=== PATIENT | female | born 1950 | race Caucasian/White ===

== ENCOUNTER 2021-07-26 15:15 | Inpatient (IN) | payer MEDICARE, SELFPAY ==
[2021-07-26 16:11] VITALS: BP 168/89; PULSE 81; RESP 16; TEMP 36.6; O2SAT 97
[2021-07-26 17:13] VITALS: BMI 28.0
--- NOTE | 2021-07-26 19:17 | PC.ADMIT ---
Arrived on unit via stretcher/ambulance from [facility] ED at 1530. Signed CV and accepted by Dr Lacey. Five minute safety checks started upon admission to unit. Precipitating factors to admission: Pt expressing SI to friends and called [place] [employer] per pt to express SI. Stressors: pending long-term and daughter and son-in-law moving to [place] in November. Tox screen negative, etoh<10, Acetaminophen <15. Initially stated only medical issue as high cholesterol and only med as Simvastatin. Meds verified with MARTINA Richards. Meds verified Simvastatin 10 mg po bedtime and Lasix 20 mg every other day. Pt acknowledges use of Lasix also. Prescribed meds last taken 2 days ago. Admission orders received from Dr Lacey. Dr Tirado informed of meds verified and will be placing order. Alert and oriented x4. Clinical impression from [facility]: Anxiety, Depressed Mood, Suicidal Ideation. Medical issues: High cholesterol. Cooperative with admission process. Presents with depressed/anxious mood, blunted affect. Anxious re: insurance coverage for this admission at present time. Fifteen min safety checks ordered when admission orders received. Denies current SI/HI. Denies AH/VH ever. Reports disturbed sleep. Hospitalist consult in, Dr Santana notified.
[2021-07-26 19:46] VITALS: BP 149/81; PULSE 72; RESP 16; TEMP 36.1; O2SAT 97
[2021-07-26] MEDS: Mirtazapine 7.5 MG TABLET PO (20:57)
[2021-07-26] MEDS: traZODone HCL 50 MG TABLET PO ×2 (20:57→23:32)
[2021-07-26] MEDS: Atorvastatin Calcium 10 MG TABLET PO (20:57)
[2021-07-27 06:00] VITALS: BP 144/94; PULSE 99; RESP 17; TEMP 36.2; O2SAT 99
[2021-07-27 07:00] VITALS: BMI 28.1
[2021-07-27 08:17] LABS: Alanine Aminotransferase 16 U/L (0-31); Albumin Level 4.3 g/dL (3.5-5.0); Alkaline Phosphatase 80 U/L (39-117); Anion Gap 13 (12-20); Aspartate Amino Transferase 13 U/L (5-31); Bilirubin Total 0.5 mg/dL (0.0-1.0); Blood Urea Nitrogen 16 mg/dL (9-16); Calcium 9.7 mg/dL (8.4-10.2); Carbon Dioxide 28 mmol/L (22-29); Chloride 103 mmol/L (96-108); Cholesterol 160 mg/dL; Creatinine Clr Calc Pharmacy 70.3; Estimated Glomerular Filt Rate > 60; Glucose Fasting 102 mg/dL (60-99); HDL Cholesterol 43 mg/dL; LDL Cholesterol Calculated 97 mg/dl; Potassium 3.6 mmol/L (3.3-5.1); Sodium 140 mmol/L (135-145); Total Protein 7.2 g/dL (6.5-8.0); Triglycerides 101 mg/dL
--- NOTE | 2021-07-27 08:58 | HO.PM.IMCN ---
History of Present Illness Data of Consult Service Date: 07/27/21 Primary Care Provider: Unknown Physician HPI Reason for consult: Routine Medical Exam This is a relatively health 71 yo F admitted to the inpatient [facility] unit. Medical consult requested for routine medical H&P per protocol. Patient is seen and examined on the unit. Her daughter is bedside. She denies any active medical complaints. PMH HLD PSH Mole removal as a child FH non-contributory SH No tobacco, social EtOH, denies drugs Review of Systems Review of Systems: negative except hpi PMFSH Social History Household Members: None Household Members Other:: 0 Housing: House Do you presently have visiting nurse or other home services: No Patient Tobacco Use Status: Never used Tobacco Smoked in Last 30 Days: No e-Cigarette/Vaping Use: Never Used Use of substances other than those prescribed or required for medical reasons: No Currently Displaying Signs/Symptoms of Drug Intoxication Withdrawal: No Any prior treatment program specific to substance use: No Have you been hit, kicked, punched, or otherwise hurt by someone within the past year? If so, by whom?: No Do you feel safe in your current relationship?: No Current Relationship Are you made to feel afraid or neglected: No Advance Directives: No Advance Directives Information Provided: No Advance Directives on File: No Do you have thoughts of harming others: None Do you have a plan to hurt others: No Plan Recently lost weight without trying: No Eating poorly because of decreased appetite: No Nutrition Risks: No Nutritional Risk Patient : No : No Poor oral hygiene: No Meds Allergies Allergy/AdvReac Type Severity Reaction Status Date / Time No Known Allergies Allergy Verified 07/26/21 16:03 Active Medications: Current Medications Acetaminophen (Acetaminophen 325 Mg Tablet) 650 mg PO Q6H PRN PRN Reason: Headache/Pain Mild Scale (1-3) Al Hydroxide/Mg Hydroxide (Magnesium Hydrox/Alum Hydrox 30 Ml Oral.Susp) 30 ml PO Q6H PRN PRN Reason: Heartburn/Nausea Atorvastatin Calcium (Atorvastatin Calcium 10 Mg Tablet) 10 mg PO BEDTIME RODDY Last Admin: 07/26/21 20:57 Dose: 10 mg Documented by: Furosemide (Furosemide 20 Mg Tablet) 20 mg PO DAILY RODDY; Protocol Hydroxyzine HCl (Hydroxyzine Hcl 25 Mg Tablet) 25 mg PO BEDTIME PRN PRN Reason: Anxiety Magnesium Hydroxide (Milk Of Magnesia 30 Ml Oral.Susp) 30 ml PO DAILY PRN PRN Reason: Constipation Mirtazapine (Mirtazapine 7.5 Mg Tablet) 7.5 mg PO BEDTIME R[facility] Last Admin: 07/26/21 20:57 Dose: 7.5 mg Documented by: Trazodone HCl (Trazodone Hcl 50 Mg Tablet) 50 mg PO BEDTIME PRN PRN Reason: Insomnia Last Admin: 07/26/21 23:32 Dose: 50 mg Documented by: Home Medications Medication Instructions Recorded Confirmed Last Taken Type furosemide 20 mg PO Q OTHER DAY 07/26/21 07/26/21 2 Days Ago History ~07/24/21 20 mg simvastatin 10 mg PO BEDTIME 07/26/21 07/26/21 2 Days Ago History ~07/24/21 10 mg Physical Exam Vital Signs and Narrative: Vital Signs: Last Vital Signs Temp 97.0 F 07/26/21 19:46 Pulse 72 07/26/21 19:46 Resp 16 07/26/21 19:46 BP 149/81 H 07/26/21 19:46 Pulse Ox 97 07/26/21 19:46 BMI result Body Mass Index 28.0 Const: Other: General - no acute distress, appears comfortable Cardiovascular - regular rate and rhythm, S1-S2 Lungs - normal respiratory effort, clear to auscultation bilaterally, no wheezing Abdomen - soft, nontender, no rebound or guarding Extremities - no edema bilaterally Neuro - awake and alert, no focal deficits; cn 2-12 intact b/l Results Labs CBC and Chem 7: 07/27/21 07:54 Labs: Laboratory Results - last 24 hr 07/27/21 07:54 Anion Gap 13 Estim Creat Clear Calc 70.3 Estimated GFR > 60 Fasting Glucose 102 H Calcium 9.7 Total Bilirubin 0.5 AST 13 ALT 16 Alkaline Phosphatase 80 Total Protein 7.2 Albumin 4.3 Triglycerides 101 Cholesterol 160 LDL Cholesterol, Calc 97 HDL Cholesterol 43 Assessment and Plan (1) Routine medical exam: Status: Acute Plan 71 [facility] F [facility] Medical consultation sought for routine medical H&P. Patient has no active medical issues. Patient has been counseled on age appropriate health maintenance as an outpatient. Continue care per primary team. Will sign off. Please re-consult if any issues arise.
[2021-07-27] MEDS: Furosemide 20 MG TABLET PO (09:21)
--- NOTE | 2021-07-27 15:57 | P.HPPS_ITS ---
HPI Date of Service: 07/27/21 Chief Complaint: Suicidal ideation Sources of Information: patient interviewed, chart reviewed and crisis/core team assessment reviewed HPI Subjective Notes: Conditional Voluntary Narrative: The patient is a 71-year-old female, single, mother of an adopted adult daughter, living alone, employed at the [employer] in [place] with good social support. The patient called 911 since she had suicidal thoughts. She was rushed to the emergency room, says by crisis and transferring to this facility for psychiatric stabilization. The patient acknowledged a history of depressed mood, anhedonia, lack of energy, poor sleep and disturbing suicidal thoughts. 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 On interview, the patient denies having prior psychiatric contacts, she adamantly denies hallucinations or delusions or any other safety concerns. The patient is highly educated pleasant and cooperative. She is able to contract for safety in the facility, Past Psychiatric History: denies Medical Evaluation Reviewed: Hospitalist P[facility]ual Pending [facility] Family History: denies Social History: the patient is the 2nd of 4 children, her milestones were achieved at expected age she was raised by her parents. She denied regular school and later she went to college and she has a master's degree in teaching. She has never been and she adopted her daughter in [place] 20 years ago. She works currently in [employer] at [employer] in [place]. She has good social support by friends and family. Substance History: Denies Trauma History: denies Diagnostics Vital Signs (24Hr): Vital Signs - 24 hr 07/26/21 16:11 07/26/21 19:46 07/27/21 06:00 Temperature 97.9 F 97.0 F 97.2 F Pulse Rate 81 72 99 Respiratory Rate 16 16 17 Blood Pressure 168/89 H 149/81 H 144/94 H Pulse Oximetry 97 97 99 BMI result Body Mass Index 28.1 Labs Results: 07/27/21 07:54 Labs: Laboratory Results - last 48 hr 07/27/21 07:54 Sodium 140 Potassium 3.6 Chloride 103 Carbon Dioxide 28 Anion Gap 13 BUN 16 Creatinine 0.76 Estim Creat Clear Calc 70.3 Estimated GFR > 60 Fasting Glucose 102 H Calcium 9.7 Total Bilirubin 0.5 AST 13 ALT 16 Alkaline Phosphatase 80 Total Protein 7.2 Albumin 4.3 Triglycerides 101 Cholesterol 160 LDL Cholesterol, Calc 97 HDL Cholesterol 43 Meds/Allergies Meds Home Medications Medication Instructions Recorded Confirmed Type furosemide 20 mg PO Q OTHER DAY 07/26/21 07/26/21 History simvastatin 10 mg PO BEDTIME 07/26/21 07/26/21 History Allergies Allergies Allergy/AdvReac Type Severity Reaction Status Date / Time No Known Allergies Allergy Verified 07/26/21 16:03 Mental Status Exam Mental Status Exam Patient Appearance: Well Grooomed Patient Orientation: Person and Situation Level of Consciousness: Awake Patient Behavior: Cooperative Mood Description: Withdrawn Affect Description: Constricted Patient Cognition Impaired: No Ability to Follow Directions: Good Speech Pattern: Clear Hallucinations: None Delusions: Not Present Thought Process: Intact, Goal Oriented and Linear Thought Content: positive for Circumstantial Judgement: Fair Assessment & Plan Assessment & Plan (1) Major depressive disorder: Status: Acute Code(s): F32.9 - Major depressive disorder, single episode, unspecified Plan the patient is an elderly female with no prior psychiatric history admitted for suicidal ideation in the context of several psychosocial stressors. The patient is highly located in [facility] and she called by herself 911 asking for help. Plan 1. . Gather collateral information. 2. Increase Remeron up to 15 mg p.o. q.h.s. to target insomnia and dysphoria. Patient educated on: diagnosis, medication risk/benefits and therapeutic strategies Informed Consent: understands Reason for continued inpatient stay Substantial Risk for: harm to self, inability to function, rapid decompensation and med/psych decompensation
[2021-07-27 19:57] VITALS: BP 109/91; PULSE 86; RESP 16; TEMP 36.3; O2SAT 97
[2021-07-27] MEDS: Mirtazapine 15 MG TABLET PO (21:16)
[2021-07-27] MEDS: Atorvastatin Calcium 10 MG TABLET PO (21:17)
[2021-07-28 07:45] VITALS: BP 131/78; PULSE 81; RESP 17; TEMP 36.4; O2SAT 98
--- NOTE | 2021-07-28 16:13 | P.PNPSI_ITS ---
Subjective Subjective Date of Service: 07/28/21 Reason For Visit: Suicidal ideation Subjective Notes: Conditional Voluntary Interim History: the nursing staff reported the patient slept well, she has been fully compliant with treatment. On interview the patient denies new symptoms she feels much better after she slept well last night. She still slightly dysphoric but able to contract for safety in the facility. Mental Status Exam Mental Status Exam Patient Appearance: Well Grooomed Patient Orientation: Person, Place, Time and Situation Level of Consciousness: Awake and Appropriate Patient Behavior: Cooperative Mood Description: Withdrawn Affect Description: Constricted Patient Cognition Impaired: No Ability to Follow Directions: Excellent Speech Pattern: Clear Hallucinations: None Delusions: Not Present Thought Process: Intact Thought Content: positive for Circumstantial Judgement: Fair Diagnostics Vital Signs (24Hr): Vital Signs - 24 hr 07/27/21 19:57 07/28/21 07:45 Temperature 97.4 F 97.6 F Pulse Rate 86 81 Respiratory Rate 16 17 Blood Pressure 109/91 H 131/78 Pulse Oximetry 97 98 BMI result Body Mass Index 28.1 Labs Results: 07/27/21 07:54 Labs: Laboratory Results - last 48 hr 07/27/21 07:54 Sodium 140 Potassium 3.6 Chloride 103 Carbon Dioxide 28 Anion Gap 13 BUN 16 Creatinine 0.76 Estim Creat Clear Calc 70.3 Estimated GFR > 60 Fasting Glucose 102 H Calcium 9.7 Total Bilirubin 0.5 AST 13 ALT 16 Alkaline Phosphatase 80 Total Protein 7.2 Albumin 4.3 Triglycerides 101 Cholesterol 160 LDL Cholesterol, Calc 97 HDL Cholesterol 43 Medications Medications Current Medications Acetaminophen (Acetaminophen 325 Mg Tablet) 650 mg PO Q6H PRN PRN Reason: Headache/Pain Mild Scale (1-3) Al Hydroxide/Mg Hydroxide (Magnesium Hydrox/Alum Hydrox 30 Ml Oral.Susp) 30 ml PO Q6H PRN PRN Reason: Heartburn/Nausea Atorvastatin Calcium (Atorvastatin Calcium 10 Mg Tablet) 10 mg PO BEDTIME RODDY Last Admin: 07/27/21 21:17 Dose: 10 mg Documented by: Furosemide (Furosemide 20 Mg Tablet) 20 mg PO Q2D@0900 [facility] Hydroxyzine HCl (Hydroxyzine Hcl 25 Mg Tablet) 25 mg PO BEDTIME PRN PRN Reason: Anxiety Magnesium Hydroxide (Milk Of Magnesia 30 Ml Oral.Susp) 30 ml PO DAILY PRN PRN Reason: Constipation Mirtazapine (Mirtazapine 15 Mg Tablet) 15 mg PO BEDTIME RODDY Last Admin: 07/27/21 21:16 Dose: 15 mg Documented by: Trazodone HCl (Trazodone Hcl 50 Mg Tablet) 50 mg PO BEDTIME PRN PRN Reason: Insomnia Last Admin: 07/26/21 23:32 Dose: 50 mg Documented by: Allergies Allergies Allergy/AdvReac Type Severity Reaction Status Date / Time No Known Allergies Allergy Verified 07/26/21 16:03 Assessment & Plan Assessment & Plan (1) Major depressive disorder: Status: Acute Code(s): F32.9 - Major depressive disorder, single episode, unspecified Plan the patient is an elderly female with no prior psychiatric history admitted for suicidal ideation in the context of several psychosocial stressors. The patient is highly located in [facility] and she called by herself 911 asking for help. Plan 1. Gather collateral information. 2. Keep Remeron 15 mg p.o. q.h.s. to target insomnia and dysphoria. I spent __20____ minutes with the patient and/or on the patient floor today, greater than?50% of which was spent counseling/coordinating care. Reason for contiued inpatient stay Substantial Risk for: inability to function, rapid decompensation and med/psych decompensation
[2021-07-28 18:00] VITALS: BP 135/77; PULSE 84; RESP 18; TEMP 36.8; O2SAT 98
[2021-07-28] MEDS: Mirtazapine 15 MG TABLET PO (20:47)
[2021-07-28] MEDS: Atorvastatin Calcium 10 MG TABLET PO (20:47)
[2021-07-28] MEDS: traZODone HCL 50 MG TABLET PO (20:47)
[2021-07-29 09:20] VITALS: BP 141/79; PULSE 101; RESP 16; TEMP 36.3; O2SAT 98
[2021-07-29] MEDS: Furosemide 20 MG TABLET PO (09:24)
--- NOTE | 2021-07-29 14:09 | P.PNPSI_ITS ---
Subjective Subjective Date of Service: 07/29/21 Reason For Visit: depression and suicidal ideation Subjective Notes: Conditional Voluntary Interim History: overall patient describes anxiety and depression is gradually improving. Sleep was difficult last night which was primarily environmental in nature as there are a number of patients on the unit that are loud. No suicidal thoughts. Feeling very supported by treatment team. Discussed strategies to help with sleep such as medication options along with ear plugs. She did discuss some of the stressors that have contributed to increased anxiety and depression before admission such as her daughter relocating to [place], upcoming assisted from her job. Looking forward to a family meeting after the weekend and disposition planning. Medication Compliance: Yes Side effects from medications: No Attending Groups: Yes Review of Systems Acute medical concerns: No Review of Systems Review of Systems Unremarkable Mental Status Exam Mental Status Exam Narrative: pleasant and engaged. Appropriately dressed. Organized and articulate. Less anxious and depressed. No SI. No HI. No agitation. No psychosis. Insight judgment good Diagnostics Vital Signs (24Hr): Vital Signs - 24 hr 07/28/21 18:00 07/29/21 09:20 Temperature 98.3 F 97.4 F Pulse Rate 84 101 H Respiratory Rate 18 16 Blood Pressure 135/77 141/79 H Pulse Oximetry 98 98 BMI result Body Mass Index 28.1 Labs Results: 07/27/21 07:54 Medications Medications Current Medications Acetaminophen (Acetaminophen 325 Mg Tablet) 650 mg PO Q6H PRN PRN Reason: Headache/Pain Mild Scale (1-3) Al Hydroxide/Mg Hydroxide (Magnesium Hydrox/Alum Hydrox 30 Ml Oral.Susp) 30 ml PO Q6H PRN PRN Reason: Heartburn/Nausea Atorvastatin Calcium (Atorvastatin Calcium 10 Mg Tablet) 10 mg PO BEDTIME [facility] Last Admin: 07/28/21 20:47 Dose: 10 mg Documented by: Furosemide (Furosemide 20 Mg Tablet) 20 mg PO Q2D@0900 [facility] Last Admin: 07/29/21 09:24 Dose: 20 mg Documented by: Hydroxyzine HCl (Hydroxyzine Hcl 25 Mg Tablet) 25 mg PO BEDTIME PRN PRN Reason: Anxiety Magnesium Hydroxide (Milk Of Magnesia 30 Ml Oral.Susp) 30 ml PO DAILY PRN PRN Reason: Constipation Mirtazapine (Mirtazapine 15 Mg Tablet) 15 mg PO BEDTIME [facility] Last Admin: 07/28/21 20:47 Dose: 15 mg Documented by: Trazodone HCl (Trazodone Hcl 50 Mg Tablet) 50 mg PO BEDTIME PRN PRN Reason: Insomnia Last Admin: 07/28/21 20:47 Dose: 50 mg Documented by: Allergies Allergies Allergy/AdvReac Type Severity Reaction Status Date / Time No Known Allergies Allergy Verified 07/26/21 16:03 Assessment & Plan Assessment & Plan (1) Major depressive disorder: Status: Acute Code(s): F32.9 - Major depressive disorder, single episode, unspecified Plan the patient is an elderly female with no prior psychiatric history ad mitted for suicidal ideation in the context of several psychosocial stressors. The patient is highly located in [facility] and she called by herself 911 asking for help. Plan 1. Gather collateral information. 2. Keep Remeron 15 mg p.o. q.h.s. to target insomnia and dysphoria. 07/29/2021: No changes to primary team treatment plan I spent minutes with the patient and/or on the patient floor today, greater than?50% of which was spent counseling/coordinating care. Patient educated on: therapeutic strategies Informed Consent: understands Reason for contiued inpatient stay Substantial Risk for: rapid decompensation
[2021-07-29] MEDS: Mirtazapine 15 MG TABLET PO (20:48)
[2021-07-29] MEDS: traZODone HCL 50 MG TABLET PO (20:48)
[2021-07-29] MEDS: Atorvastatin Calcium 10 MG TABLET PO (20:48)
[2021-07-29 22:13] VITALS: RESP 19
[2021-07-30 08:42] VITALS: BP 109/75; PULSE 93; RESP 16; TEMP 36.6; O2SAT 96
--- NOTE | 2021-07-30 14:34 | HO.PSYCHPN ---
Subjective Subjective Date of Service: 07/30/21 Reason For Visit: depression and suicidal ideation Interim History: overall reports of mood is in a better space. Is frustrated regarding milieu of unit in context of another patient being very loud and disruptive. Is hopeful for discharge as soon as possible. Discussed family support and also liaising with treatment team regarding same. Did sleep better last night and feels that medications and use of earplugs was helpful. Hopefully she can spend some time in her room today and read. No suicidal thoughts. Feeling very supported by treatment team. . Medication Compliance: Yes Side effects from medications: No Attending Groups: Yes Review of Systems Acute medical concerns: No Review of Systems Review of Systems Unremarkable Mental Status Exam Mental Status Exam Narrative: pleasant and engaged. Appropriately dressed. Organized and articulate. Less anxious and depressed. No SI. No HI. No agitation. No psychosis. Insight judgment good Diagnostics Vital Signs (24Hr): Vital Signs - 24 hr 07/29/21 22:13 07/30/21 08:42 Temperature 97.8 F Pulse Rate 93 Respiratory Rate 19 16 Blood Pressure 109/75 Pulse Oximetry 96 BMI result Body Mass Index 28.1 Labs Results: 07/27/21 07:54 Medications Medications Current Medications Acetaminophen (Acetaminophen 325 Mg Tablet) 650 mg PO Q6H PRN PRN Reason: Headache/Pain Mild Scale (1-3) Al Hydroxide/Mg Hydroxide (Magnesium Hydrox/Alum Hydrox 30 Ml Oral.Susp) 30 ml PO Q6H PRN PRN Reason: Heartburn/Nausea Atorvastatin Calcium (Atorvastatin Calcium 10 Mg Tablet) 10 mg PO BEDTIME [facility] Last Admin: 07/29/21 20:48 Dose: 10 mg Documented by: Furosemide (Furosemide 20 Mg Tablet) 20 mg PO Q2D@0900 [facility] Last Admin: 07/29/21 09:24 Dose: 20 mg Documented by: Hydroxyzine HCl (Hydroxyzine Hcl 25 Mg Tablet) 25 mg PO BEDTIME PRN PRN Reason: Anxiety Magnesium Hydroxide (Milk Of Magnesia 30 Ml Oral.Susp) 30 ml PO DAILY PRN PRN Reason: Constipation Mirtazapine (Mirtazapine 15 Mg Tablet) 15 mg PO BEDTIME [facility] Last Admin: 07/29/21 20:48 Dose: 15 mg Documented by: Trazodone HCl (Trazodone Hcl 50 Mg Tablet) 50 mg PO BEDTIME PRN PRN Reason: Insomnia Last Admin: 07/29/21 20:48 Dose: 50 mg Documented by: Allergies Allergies Allergy/AdvReac Type Severity Reaction Status Date / Time No Known Allergies Allergy Verified 07/26/21 16:03 Assessment & Plan Assessment & Plan (1) Major depressive disorder: Status: Acute Code(s): F32.9 - Major depressive disorder, single episode, unspecified Plan the patient is an elderly female with no prior psychiatric history admitted for suicidal ideation in the context of several psychosocial stressors. The patient is highly located in [facility] and she called by herself 911 asking for help. Plan 1. Gather collateral information. 2. Keep Remeron 15 mg p.o. q.h.s. to target insomnia and dysphoria. 07/30/2021: No changes to primary team treatment plan I spent minutes with the patient and/or on the patient floor today, greater than?50% of which was spent counseling/coordinating care. Reason for contiued inpatient stay Substantial Risk for: rapid decompensation
[2021-07-30 18:00] VITALS: BP 124/70; PULSE 82; RESP 16; TEMP 36.9; O2SAT 96
[2021-07-30] MEDS: Atorvastatin Calcium 10 MG TABLET PO (21:00)
[2021-07-30] MEDS: traZODone HCL 50 MG TABLET PO ×2 (21:00→22:09)
[2021-07-30] MEDS: Mirtazapine 15 MG TABLET PO (21:00)
[2021-07-31] MEDS: hydrOXYzine HCL 25 MG TABLET PO (02:47)
[2021-07-31 06:00] VITALS: BP 135/78; PULSE 107; RESP 18; TEMP 36.3; O2SAT 93
[2021-07-31] MEDS: Furosemide 20 MG TABLET PO (08:20)
--- NOTE | 2021-07-31 08:54 | P.PNPSI_ITS ---
Subjective Subjective Date of Service: 07/31/21 Reason For Visit: depression and suicidal ideation Subjective Notes: Conditional Voluntary Healthcare Proxy: No Interim History: 71 yo female recent hx of depression triggered by daughters potential move to [place] feeling out of sorts few weeks daughter is tech worker recently Mental Status Exam Mental Status Exam Narrative: od Patient Appearance: Well Grooomed Patient Orientation: Person, Place, Time and Situation Level of Consciousness: Awake Patient Behavior: Appropriate Mood Description: Depressed and Anxious Affect Description: Calm and Apprehensive Ability to Follow Directions: Excellent Speech Pattern: Clear Hallucinations: None Delusions: Not Present Thought Content: positive for Preoccupation, negative for Suicidal Ideation or negative for Homicidal Ideation Depressive Symptoms: Increased Anxiety and Thoughts of /Suicide Judgement: Good Diagnostics Vital Signs (24Hr): Vital Signs - 24 hr 07/30/21 18:00 Temperature 98.4 F Pulse Rate 82 Respiratory Rate 16 Blood Pressure 124/70 Pulse Oximetry 96 BMI result Body Mass Index 28.1 Labs Results: 07/27/21 07:54 Medications Medications Current Medications Acetaminophen (Acetaminophen 325 Mg Tablet) 650 mg PO Q6H PRN PRN Reason: Headache/Pain Mild Scale (1-3) Al Hydroxide/Mg Hydroxide (Magnesium Hydrox/Alum Hydrox 30 Ml Oral.Susp) 30 ml PO Q6H PRN PRN Reason: Heartburn/Nausea Atorvastatin Calcium (Atorvastatin Calcium 10 Mg Tablet) 10 mg PO BEDTIME [facility] Last Admin: 07/30/21 21:00 Dose: 10 mg Documented by: Furosemide (Furosemide 20 Mg Tablet) 20 mg PO Q2D@0900 [facility] Last Admin: 07/31/21 08:20 Dose: 20 mg Documented by: Hydroxyzine HCl (Hydroxyzine Hcl 25 Mg Tablet) 25 mg PO BEDTIME PRN PRN Reason: Anxiety Last Admin: 07/31/21 02:47 Dose: 25 mg Documented by: Magnesium Hydroxide (Milk Of Magnesia 30 Ml Oral.Susp) 30 ml PO DAILY PRN PRN Reason: Constipation Mirtazapine (Mirtazapine 15 Mg Tablet) 15 mg PO BEDTIME [facility] Last Admin: 07/30/21 21:00 Dose: 15 mg Documented by: Trazodone HCl (Trazodone Hcl 50 Mg Tablet) 50 mg PO BEDTIME PRN PRN Reason: Insomnia Last Admin: 07/30/21 22:09 Dose: 50 mg Documented by: Allergies Allergies Allergy/AdvReac Type Severity Reaction Status Date / Time No Known Allergies Allergy Verified 07/26/21 16:03 Assessment & Plan Assessment & Plan (1) Major depressive disorder: Status: Acute Code(s): F32.9 - Major depressive disorder, single episode, unspecified Plan the patient is an elderly female with no prior psychiatric history admitted for suicidal ideation in the context of several psychosocial stressors. The patient is highly located in [facility] and she called by herself 911 asking for help. Plan 1. Gather collateral information. 2. Keep Remeron 15 mg p.o. q.h.s. to target insomnia and dysphoria. 07/30/2021: No changes to primary team treatment plan 07/31/21 Pt seen chart reviewed case reviewed feeling distress over envirment denies active si I spent minutes with the patient and/or on the patient floor today, greater than?50% of which was spent counseling/coordinating care. Reason for contiued inpatient stay Substantial Risk for: harm to self and rapid decompensation
--- NOTE | 2021-07-31 16:58 | HO.PSYCHPN ---
Subjective Subjective Date of Service: 07/31/21 Reason For Visit: depression and suicidal ideation Subjective Notes: Conditional Voluntary Healthcare Proxy: No Guardianship: No Interim History: pt flat monotone having difficult time had difficulty with upcoming [facility] daughter moving to [place] no prior history of depression treatment or psychotherapy open tab patient treatment started on mirtazapine Mental Status Exam Mental Status Exam Narrative: od Patient Appearance: Well Grooomed Patient Orientation: Person, Place, Time and Situation Level of Consciousness: Awake Patient Behavior: Appropriate Mood Description: Depressed and Anxious Affect Description: Calm and Apprehensive Ability to Follow Directions: Excellent Speech Pattern: Clear Hallucinations: None Delusions: Not Present Thought Content: positive for Preoccupation, negative for Suicidal Ideation or negative for Homicidal Ideation Depressive Symptoms: Increased Anxiety and Thoughts of /Suicide Judgement: Good Diagnostics Vital Signs (24Hr): Vital Signs - 24 hr 07/30/21 18:00 07/31/21 06:00 Temperature 98.4 F 97.3 F Pulse Rate 82 107 H Respiratory Rate 16 18 Blood Pressure 124/70 135/78 Pulse Oximetry 96 93 BMI result Body Mass Index 28.1 Labs Results: 07/27/21 07:54 Medications Medications Current Medications Acetaminophen (Acetaminophen 325 Mg Tablet) 650 mg PO Q6H PRN PRN Reason: Headache/Pain Mild Scale (1-3) Al Hydroxide/Mg Hydroxide (Magnesium Hydrox/Alum Hydrox 30 Ml Oral.Susp) 30 ml PO Q6H PRN PRN Reason: Heartburn/Nausea Atorvastatin Calcium (Atorvastatin Calcium 10 Mg Tablet) 10 mg PO BEDTIME [facility] Last Admin: 07/30/21 21:00 Dose: 10 mg Documented by: Furosemide (Furosemide 20 Mg Tablet) 20 mg PO Q2D@0900 [facility] Last Admin: 07/31/21 08:20 Dose: 20 mg Documented by: Hydroxyzine HCl (Hydroxyzine Hcl 25 Mg Tablet) 25 mg PO BEDTIME PRN PRN Reason: Anxiety Last Admin: 07/31/21 02:47 Dose: 25 mg Documented by: Magnesium Hydroxide (Milk Of Magnesia 30 Ml Oral.Susp) 30 ml PO DAILY PRN PRN Reason: Constipation Mirtazapine (Mirtazapine 15 Mg Tablet) 15 mg PO BEDTIME [facility] Last Admin: 07/30/21 21:00 Dose: 15 mg Documented by: Trazodone HCl (Trazodone Hcl 50 Mg Tablet) 50 mg PO BEDTIME PRN PRN Reason: Insomnia Last Admin: 07/30/21 22:09 Dose: 50 mg Documented by: Allergies Allergies Allergy/AdvReac Type Severity Reaction Status Date / Time No Known Allergies Allergy Verified 07/26/21 16:03 Assessment & Plan Assessment & Plan (1) Major depressive disorder: Status: Acute Code(s): F32.9 - Major depressive disorder, single episode, unspecified Plan the patient is an elderly female with no prior psychiatric history admitted for suicidal ideation in the context of several psychosocial stressors. The patient is highly located in [facility] and she called by herself 911 asking for help. Plan 1. Gather collateral information. 2. Keep Remeron 15 mg p.o. q.h.s. to target insomnia and dysphoria. 07/30/2021: No changes to primary team treatment plan 07/31/21 Pt seen chart reviewed case reviewed feeling distress over envirment denies active si discharge planning continue mirtazapine I spent minutes with the patient and/or on the patient floor today, greater than?50% of which was spent counseling/coordinating care. Reason for contiued inpatient stay Substantial Risk for: harm to self and rapid decompensation
[2021-07-31 18:00] VITALS: BP 109/60; PULSE 77; RESP 16; TEMP 36.4; O2SAT 98
[2021-07-31] MEDS: Atorvastatin Calcium 10 MG TABLET PO (21:12)
[2021-07-31] MEDS: traZODone HCL 50 MG TABLET PO ×2 (21:13→22:14)
[2021-07-31] MEDS: Mirtazapine 15 MG TABLET PO (21:13)
[2021-08-01] MEDS: hydrOXYzine HCL 25 MG TABLET PO (00:58)
[2021-08-01 07:20] VITALS: BP 121/75; PULSE 93; RESP 17; TEMP 36.8; O2SAT 97
--- NOTE | 2021-08-01 12:49 | P.PNPSI_ITS ---
Subjective Subjective Date of Service: 08/01/21 Reason For Visit: depression and suicidal ideation Subjective Notes: Conditional Voluntary Interim History: The nursing staff reported the patient has been fully compliant with treatment, no side effects with the medication. She slept last night well and she was visible in the unit. On interview the patient denies new symptoms she feels better, she is a little apprehensive sings whether patient had been agitated. Today we had a family meeting over Zoom with her daughter and sister and we discussed discharge planning. Mental Status Exam Mental Status Exam Patient Appearance: Well Grooomed Patient Orientation: Person, Place, Time and Situation Level of Consciousness: Awake and Appropriate Mood Description: Calm Affect Description: Constricted Patient Cognition Impaired: No Ability to Follow Directions: Good Speech Pattern: Clear Memory Description: Intact Hallucinations: None Delusions: Not Present Thought Process: Linear Thought Content: positive for Goal Oriented Judgement: Fair Diagnostics Vital Signs (24Hr): Vital Signs - 24 hr 07/31/21 18:00 08/01/21 07:20 Temperature 97.6 F 98.3 F Pulse Rate 77 93 Respiratory Rate 16 17 Blood Pressure 109/60 121/75 Pulse Oximetry 98 97 BMI result Body Mass Index 28.1 Labs Results: 07/27/21 07:54 Medications Medications Current Medications Acetaminophen (Acetaminophen 325 Mg Tablet) 650 mg PO Q6H PRN PRN Reason: Headache/Pain Mild Scale (1-3) Al Hydroxide/Mg Hydroxide (Magnesium Hydrox/Alum Hydrox 30 Ml Oral.Susp) 30 ml PO Q6H PRN PRN Reason: Heartburn/Nausea Atorvastatin Calcium (Atorvastatin Calcium 10 Mg Tablet) 10 mg PO BEDTIME [facility] Last Admin: 07/31/21 21:12 Dose: 10 mg Documented by: Furosemide (Furosemide 20 Mg Tablet) 20 mg PO Q2D@0900 [facility] Last Admin: 07/31/21 08:20 Dose: 20 mg Documented by: Hydroxyzine HCl (Hydroxyzine Hcl 25 Mg Tablet) 25 mg PO BEDTIME PRN PRN Reason: Anxiety Last Admin: 08/01/21 00:58 Dose: 25 mg Documented by: Magnesium Hydroxide (Milk Of Magnesia 30 Ml Oral.Susp) 30 ml PO DAILY PRN PRN Reason: Constipation Mirtazapine (Mirtazapine 15 Mg Tablet) 15 mg PO BEDTIME [facility] Last Admin: 07/31/21 21:13 Dose: 15 mg Documented by: Trazodone HCl (Trazodone Hcl 50 Mg Tablet) 50 mg PO BEDTIME PRN PRN Reason: Insomnia Last Admin: 07/31/21 22:14 Dose: 50 mg Documented by: Allergies Allergies Allergy/AdvReac Type Severity Reaction Status Date / Time No Known Allergies Allergy Verified 07/26/21 16:03 Assessment & Plan Assessment & Plan (1) Major depressive disorder: Status: Acute Code(s): F32.9 - Major depressive disorder, single episode, unspecified Plan the patient is an elderly female with no prior psychiatric history admitted for suicidal ideation in the context of several psychosocial stressors. The patient is highly located in [facility] and she called by herself 911 asking for help. Plan 1. Gather collateral information. 2. Keep Remeron 15 mg p.o. q.h.s. to target insomnia and dysphoria. 3. Start discharge planning I spent ___20___ minutes with the patient and/or on the patient floor today, greater than?50% of which was spent counseling/coordinating care. Reason for contiued inpatient stay Substantial Risk for: inability to function, rapid decompensation and med/psych decompensation
[2021-08-01 20:55] VITALS: BP 116/72; PULSE 72; RESP 18; TEMP 36.6; O2SAT 97
[2021-08-01] MEDS: Atorvastatin Calcium 10 MG TABLET PO (21:19)
[2021-08-01] MEDS: Mirtazapine 15 MG TABLET PO (21:19)
[2021-08-02] MEDS: hydrOXYzine HCL 25 MG TABLET PO ×2 (01:21→21:44)
[2021-08-02] MEDS: Furosemide 20 MG TABLET PO (08:29)
[2021-08-02 08:59] VITALS: PULSE 87; RESP 17; TEMP 36; O2SAT 96
--- NOTE | 2021-08-02 15:23 | P.PNPSI_ITS ---
Subjective Subjective Date of Service: 08/02/21 Reason For Visit: depression and suicidal ideation Subjective Notes: Conditional Voluntary Interim History: The nursing staff reports the patient is pleasant and cooperative, fully compliant with treatment. On interview the patient is future oriented, she is willing to continue treatment as an outpatient. No new symptoms, ready for discharge tomorrow Mental Status Exam Mental Status Exam Patient Appearance: Well Grooomed Patient Orientation: Person, Place, Time and Situation Level of Consciousness: Awake Patient Behavior: Cooperative Mood Description: Constricted Affect Description: Calm Patient Cognition Impaired: No Ability to Follow Directions: Good Speech Pattern: Clear Memory Description: Intact Hallucinations: None Delusions: Not Present Thought Process: Linear Thought Content: positive for Intact Judgement: Fair Diagnostics Vital Signs (24Hr): Vital Signs - 24 hr 08/01/21 20:55 08/02/21 08:59 Temperature 97.8 F 96.8 F Pulse Rate 72 87 Respiratory Rate 18 17 Blood Pressure 116/72 Pulse Oximetry 97 96 BMI result Body Mass Index 28.1 Labs Results: 07/27/21 07:54 Medications Medications Current Medications Acetaminophen (Acetaminophen 325 Mg Tablet) 650 mg PO Q6H PRN PRN Reason: Headache/Pain Mild Scale (1-3) Al Hydroxide/Mg Hydroxide (Magnesium Hydrox/Alum Hydrox 30 Ml Oral.Susp) 30 ml PO Q6H PRN PRN Reason: Heartburn/Nausea Atorvastatin Calcium (Atorvastatin Calcium 10 Mg Tablet) 10 mg PO BEDTIME [facility] Last Admin: 08/01/21 21:19 Dose: 10 mg Documented by: Furosemide (Furosemide 20 Mg Tablet) 20 mg PO Q2D@0900 [facility] Last Admin: 08/02/21 08:29 Dose: 20 mg Documented by: Hydroxyzine HCl (Hydroxyzine Hcl 25 Mg Tablet) 25 mg PO BEDTIME PRN PRN Reason: Anxiety Last Admin: 08/02/21 01:21 Dose: 25 mg Documented by: Magnesium Hydroxide (Milk Of Magnesia 30 Ml Oral.Susp) 30 ml PO DAILY PRN PRN Reason: Constipation Mirtazapine (Mirtazapine 15 Mg Tablet) 15 mg PO BEDTIME [facility] Last Admin: 08/01/21 21:19 Dose: 15 mg Documented by: Trazodone HCl (Trazodone Hcl 50 Mg Tablet) 50 mg PO BEDTIME PRN PRN Reason: Insomnia Last Admin: 07/31/21 22:14 Dose: 50 mg Documented by: Allergies Allergies Allergy/AdvReac Type Severity Reaction Status Date / Time No Known Allergies Allergy Verified 07/26/21 16:03 Assessment & Plan Assessment & Plan (1) Major depressive disorder: Status: Acute Code(s): F32.9 - Major depressive disorder, single episode, unspecified Plan the patient is an elderly female with no prior psychiatric history admitted for suicidal ideation in the context of several psychosocial stressors. The patient is highly located in [facility] and she called by herself 911 asking for help. Plan 1. Gather collateral information. 2. Keep Remeron 15 mg p.o. q.h.s. to target insomnia and dysphoria. 3. Start discharge planning I spent ___20___ minutes with the patient and/or on the patient floor today, greater than?50% of which was spent counseling/coordinating care. Reason for contiued inpatient stay Substantial Risk for: inability to function, rapid decompensation and med/psych decompensation
[2021-08-02 19:30] VITALS: BP 154/81; PULSE 107; RESP 18; TEMP 37.7; O2SAT 96
[2021-08-02] MEDS: Mirtazapine 15 MG TABLET PO (21:14)
[2021-08-02] MEDS: Atorvastatin Calcium 10 MG TABLET PO (21:14)
[2021-08-02 21:30] VITALS: BP 142/80; PULSE 99; O2SAT 96
[2021-08-03] MEDS: traZODone HCL 50 MG TABLET PO (00:38)
--- NOTE | 2021-08-03 08:11 | P.DS_ITS ---
DS: Providers Provider Date of Service: 08/03/21 Date of admission: 07/26/21 15:15 Date of discharge: 08/03/21 Primary care physician: Unknown Physician Consults: 07/26/21 16:03 Consult to Hospitalist Routine Consulting Provider: Hospitalist Reason For Exam: Admission to psychiatry Attending physician on discharge: Mynor Lacey DS: Diagnosis Discharge Diagnosis (1) Major depressive disorder: Status: Acute DS: Medications Discharge Medications Home Medications: Home Medications Medication Instructions Recorded Confirmed furosemide 20 mg PO Q OTHER DAY 07/26/21 07/26/21 simvastatin 10 mg PO BEDTIME 07/26/21 07/26/21 Mental Status Exam Mental Status Exam Patient Appearance: Well Grooomed and Appropriate Patient Orientation: Person, Place, Time and Situation Level of Consciousness: Awake Patient Behavior: Appropriate and Cooperative Mood Description: Calm Affect Description: Constricted Patient Cognition Impaired: No Ability to Follow Directions: Excellent Speech Pattern: Clear Memory Description: Intact Hallucinations: None Delusions: Not Present Thought Process: Intact, Goal Oriented and Linear Thought Content: positive for Intact Judgement: Fair Data Data Completed and Pending Completed studies during hospitalization [Text1]: 07/27/21 07:54 Sodium 140 Potassium 3.6 Chloride 103 Carbon Dioxide 28 Anion Gap 13 BUN 16 Creatinine 0.76 Estim Creat Clear Calc 70.3 Estimated GFR > 60 Fasting Glucose 102 H Calcium 9.7 Total Bilirubin 0.5 AST 13 ALT 16 Alkaline Phosphatase 80 Total Protein 7.2 Albumin 4.3 Triglycerides 101 Cholesterol 160 LDL Cholesterol, Calc 97 HDL Cholesterol 43 DS: Summary Hospital Course Hospital Course: The patient was initially transferred from the ED of another hospital out of our catchment area due to exacerbation of depression with suicidal ideation in the context of several psychosocial stressors. Please see HPI for further details. On admission, it was clear thet the patient didn't have any prior psychiatric history nor prior safety concerns; she is highly functional and independent at [facility]. On the intake interview, we discussed at [facility] treatment opitons and she agreed to start REmeron to targer her depression and insomnia. The patient tolerated the medication fairly well without any side effects, she was able to participate on groups and other therapeutic activities of the [facility] and she was future oriented. We did a family meeting. Since her suicidal ideation was resolved, and her mood symptoms improved, discharge planning was discussed. The team looked for aftercare and proper referrals were done. Since there were no safety concerns, discharge planning was started. Time spent discussing smoking cessation with patient: 3 to 10 minutes Status at Discharge Cognitive/behavioral status at discharge: At baseline Functional status at discharge: independent ambulation Overall status at discharge: patient is back to baseline Time Spent with Patient Time attestation: Total time spent providing and/or coordinating discharge services: Time spent: Less than 30 minutes Discharge Plan Discharge Patient Disposition: Home, Self-Care Discharge Diagnosis: MDD single episode severe without psychosis Referrals: Dr. Melisa Traore (PCP) [Other] - 08/09/21 2:30 pm (Appt scheduled for Monday, August 09, 2021 @ 2:30 PM IN OFFICE.) Sabine Logan OVERHEAD LINE WORKER @ [facility] [Other] - 08/10/21 1:00 pm (Therapists appointment scheduled with Sabine Logan @ [facility] for August @ 1 PM. Appointment will be virtual. Please log in to your [employer] link to access the link for appointment.) Grisel Burkett OVERHEAD LINE WORKER @ [facility] [Other] - 08/25/21 12:30 pm (Medication prescriber appointment scheduled with OVERHEAD LINE WORKER Grisel Olivares @ [facility] for Wednesday, August 25, 2021 @ 12:30 PM. Appointment will be video. Please log in to your [employer] link to access the video link for appointment.) [facility] Crisis Team [Other] - 1 Week (Please call [phone] for 24/7 phone support as needed or if she are having suicidal thoughts to request a mobile crisis assessment.) Physician,Unknown J [Primary Care Provider] - 1 Week Discharge Medications: New trazodone 50 mg Tablet 50 mg PO BEDTIME PRN (Reason: Insomnia) 30 Days Qty: 30 0RF mirtazapine 15 mg Tablet 15 mg PO BEDTIME 30 Days Qty: 30 0RF Continued furosemide 20 mg PO Q OTHER DAY 0RF Rx Instructions: 20 mg every other day last filled 06/12/21 90 day supply simvastatin 10 mg PO BEDTIME 0RF Discharge Orders: Discharge Order (Routine); Ordered 08/03/21 Ordered By: Mynor Lacey Diet: advance to usual diet Activity on Discharge: As tolerated Stand Alone Forms: Patient Portal Discharge page Care Plan Goals: Care Plan Goals achieved on this admission Health Concerns: Continue treatment with outpatient PCP Plan of Treatment: Contiinue medication managemnt and psychotherapy Assessment: Middle age female with MDD first episode that responded very well to Remeron. No safety concerns, highly functional at baseline, safe for discharge.
--- NOTE | 2021-08-03 09:24 | PC.NURSE ---
A&O x 4 pleasant and out frequently conversing with others. speech clear logically med compliant ambulates independently steady on ft pt aware and ready for dc dc education and materials provided to pt
== END 2021-08-03 10:05 | disposition home or self-care (01) | DRG 881 ==
PROVIDERS: Admitting Provider Psychiatry & Neurology Psychiatry; Visit Provider Psychiatry & Neurology Psychiatry
DX: F32.9 Major depressive disorder, single episode, unspecified (principal); R45.851 Suicidal ideations; E78.5 Hyperlipidemia, unspecified; Z79.899 Other long term (current) drug therapy
CPT/HCPCS: 36415; 80053; 80061